=== PATIENT | female | born 1980 | race Caucasian/White ===

== ENCOUNTER 2020-11-19 18:37 | Emergency (ER) | payer MEDICAID, SELFPAY ==
[2020-11-19 18:40] VITALS: BP 119/83; PULSE 88; RESP 16; TEMP 36.6; O2SAT 97; BMI 31.9
[2020-11-19 18:42] VITALS: BP 119/83; PULSE 86; RESP 18; O2SAT 99
--- NOTE | 2020-11-19 19:07 | EDS_ITS ---
HPI History of Present Illness Chief Complaint: Back Narrative Narrative: 40-year-old female presenting with lower back pain. She states been hurting her for a couple of days. She is recently been moving into a new house. She had back pain the day before yesterday however it is increased over the course of the last 24 hours. She did hear a pop at one point. She denies saddle paresthesias. She denies loss of bladder or bowel control. She denies to the back. Patient has no urinary, vaginal, GI complaints. No history of back problems in the past. [facility] Medical History PCOS (polycystic ovarian syndrome) Home Medications buspirone [BuSpar] 10 mg PO BID 11/19/20 [History Last Taken Unknown] cyclobenzaprine 10 mg PO TID PRN #20 tablet 11/19/20 [Rx Last Taken Unknown] escitalopram oxalate [Lexapro] 20 mg PO DAILY 11/19/20 [History Last Taken Unknown] ferrous sulfate 27 mg PO DAILY 11/19/20 [History Last Taken Unknown] loratadine [Claritin] 10 mg PO DAILY PRN 11/19/20 [History Last Taken Unknown] prednisone 50 mg PO DAILY 3 Days #15 tab 11/19/20 [Rx Last Taken Unknown] Allergy/AdvReac Type Severity Reaction Status Date / Time cephalexin [From Keflex] Allergy Hives Verified 11/19/20 18:39 nitrofurantoin Allergy Hives Verified 11/19/20 18:39 [From Macrobid] Penicillins [PCN] Allergy Hives Verified 11/19/20 18:39 sulfamethoxazole Allergy Hives Verified 11/19/20 18:39 [From Bactrim] triamterene Allergy Hives Verified 11/19/20 18:39 trimethoprim [From Bactrim] Allergy Hives Verified 11/19/20 18:39 Social History Smoking Status: Current every day smoker tobacco type: cigarettes ROS ROS ED Constitutional Constitutional ED: Denies chills, fever(s) or sweats Eyes Eyes: Denies blurry vision ENT ENT ED: Denies rhinorrhea or sore throat Cardiovascular Cardiovascular: Denies chest pain or palpitations Respiratory/Chest Respiratory/Chest: Denies dyspnea or sputum Gastrointestinal Gastrointestinal: Denies abdominal pain, nausea or vomiting Genitourinary Genitourinary ED: Denies dysuria, hematuria or urinary frequency Musculoskeletal Musculoskeletal: Reports back pain; Denies arthralgias or myalgias Integumentary Denies abscess or rash Neurologic Neurologic: Denies headache(s) or paresthesias Psychiatric Psychiatric: Denies anxiety or depression EXAM Physical Exam Const Vital Signs: 11/19/20 18:40 11/19/20 18:42 Temperature 97.8 F Temperature Source Temporal Pulse Rate 88 86 Respiratory Rate 16 18 Blood Pressure 119/83 H 119/83 H Blood Pressure Mean 95 95 Pulse Ox 97 99 Oxygen Delivery Method Room Air Room Air HEENT Reports moist mucous membranes Eyes PERRL and EOMs intact bilaterally Resp normal respiratory effort and clear to auscultation bilaterally Cardio regular rate and regular rhythm Back/Spine Back/Spine Narrative: Diffuse bilateral lumbar paraspinal musculature tenderness without midline spinal deformity or step-off. No ecchymosis, rash. Extremity normal to inspection General Extremety ED: Negative for edema or tenderness General Extremity: Negative for edema Psych mental status grossly normal Skin no rashes or lesions noted and no wounds MDM MDM MDM Narrative Medical decision making narrative: Patient presenting with lower back pain. She states this has been worsening over the last couple days. She states he did hear a crack at one point. She has no signs of cauda equina syndrome or infectious etiology. Patient was given Toradol, oxycodone, prednisone in the ED. On reevaluation she feels much improved. X-ray of the lumbar spine on my interpretation shows grade 1 retrolisthesis L4 and L5 and the radiologist does agree. Since patient is comfortable this time I will discharge her home with prednisone and cyclobenzaprine. She is counseled after the prednisone is finished she can alternate anti-inflammatories and Tylenol. Patient stable for discharge at this time. Impression: 1. Lumbar strain 2. Grade 1 retrolisthesis L4 on L5 Radiography Diagnostic Testing: Radiology Impression Lumbar Spine X-Ray 11/19/20 19:22 IMPRESSION: Grade 1 retrolisthesis L4 on L5. Electronically Signed: Júnior Horne MD at 19:46 EDT Tel , Service support , Discharge Plan Triage Chief Complaint: Back ED Provider: Juan A Levine Dx/Rx/DC Orders Instructions: ED Back Sprain/Strain Prescriptions: New prednisone 10 mg tablet 50 mg PO DAILY 3 Days Qty: 15 RF: 0 cyclobenzaprine 10 mg tablet 10 mg PO TID PRN (Reason: Muscle Spasm) Qty: 20 RF: 0 No Action buspirone [BuSpar] 10 mg Tablet 10 mg PO BID RF: 0 escitalopram oxalate [Lexapro] 20 mg Tablet 20 mg PO DAILY RF: 0 loratadine [Claritin] 10 mg Tablet 10 mg PO DAILY PRN (Reason: ALLERGIES) RF: 0 ferrous sulfate 27 mg iron Tablet 27 mg PO DAILY RF: 0 Primary Care Provider: Care Physician,No Primary Referrals: Jen Robin MD [STAFF PHYSICIAN] - As soon as possible Care Physician,No Primary [Primary Care Provider] - Disposition Disposition: Home, Self Care Discharge Date/Time: 11/19/20 20:26
[2020-11-19] MEDS: Ketorolac 15 MG/ML Vial IM (19:12)
[2020-11-19] MEDS: oxyCODONE 5 MG Tablet PO (19:12)
[2020-11-19] MEDS: predniSONE 20 MG Tablet 60 MG PO (19:12)
--- NOTE | 2020-11-19 19:22 | RAD_ITS ---
INDICATION: back pain EXAMINATION/TECHNIQUE: X-RAY - XR Spine Lumbar 2 or 3 Views COMPARISON: None. FINDINGS: VERTEBRAE: Preserved vertebral body height. No fracture. Grade 1 retrolisthesis L4 on L5. Preservation of the normal lumbar lordosis. No significant facet arthropathy. DISCS: Minimal multilevel degenerative disc disease and spondylosis. INCLUDED ABDOMEN: Included bowel gas pattern is non-obstructive. RAD/Lumbar Spine 2 or 3 Views IMPRESSION: Grade 1 retrolisthesis L4 on L5. Electronically Signed: Júnior Horne MD at 19:46 EDT Tel , Service support ,
== END 2020-11-19 20:26 | disposition home or self-care (01) ==
PROVIDERS: Emergency Provider Student in an Organized Health Care Education/Training Program
DX: M43.16 Spondylolisthesis, lumbar region (principal); S39.012A Strain of muscle, fascia and tendon of lower back, initial encounter; F17.210 Nicotine dependence, cigarettes, uncomplicated; X50.0XXA Overexertion from strenuous movement or load, initial encounter; Y93.E6 Activity, residential relocation; Y92.009 Unspecified place in unspecified non-institutional (private) residence as the place of occurrence of the external cause; Y99.8 Other external cause status
CPT/HCPCS: 72100; 96372; 99283